=== PATIENT | female | born 1960 | race African-American/Black ===

== ENCOUNTER 2020-01-26 07:20 | Emergency (ER) | payer OTHER ==
[~2020-01-26] VITALS: Ht 167.6 cm; Wt 81.6 kg
[2020-01-26 07:29] VITALS: Ht 167.6 cm; Wt 81.6 kg
[2020-01-26 08:01] LABS: BASOPHIL % 0.5 % (0-2); PLATELET COUNT 302 x10^3mcL (130-400); RED CELL DISTRIBUTION WIDTH 14.4 % (11.5-14.5)
[2020-01-26 08:37] LABS: T3 TOTAL 1.2 ng/mL
[2020-01-26 09:09] LABS: CALCIUM 9.3 mg/dL (8.5-10.1); CARBON DIOXIDE 27.2 mmol/L (21-32); CREATININE SERUM 1.1 mg/dL (0.6-1.0); POTASSIUM SERUM 3.5 mmol/L (3.5-5.1)
[2020-01-26 09:13] LABS: BILIRUBIN TOTAL 0.3 mg/dL (0.20-1.00); CHOLESTEROL/HDL RATIO 2.7
[2020-01-26 09:15] LABS: ALBUMIN 3.3 g/dL (3.4-5.0)
[2020-01-26 09:24] LABS: UA SPECIFIC GRAVITY >=1.030 (1.005-1.035); microscopic required? YES; urine erythrocyte TRACE (NEGATIVE)
[2020-01-26 09:26] LABS: FREE T4 1.07 ng/dL (0.76-1.46); FREE THYROXINE INDEX 2.9 ug/dL (1.4-4.5); T4(THYROXINE) 7.2 ug/dL (4.7-13.3)
[2020-01-26 11:28] VITALS: BP 139/58
== END 2020-01-26 11:28 | disposition home or self-care (01) ==
LOC: ED 07:20
PROVIDERS: Specialist
DX: J18.8 Other pneumonia, unspecified organism (principal); G40.909 Epilepsy, unspecified, not intractable, without status epilepticus; I10 Essential (primary) hypertension; Z88.8 Allergy status to other drugs, medicaments and biological substances
CPT/HCPCS: 36600; 83880; 84439; 87804; J1956; J2405; J8597; Q0092